=== PATIENT | female | born 1935 | race Caucasian/White ===

== ENCOUNTER 2016-07-14 10:05 | Observation (INO) ==
--- NOTE | 2016-07-14 10:21 | Emergency Department Note ---
Disposition Clinical Impression: Dehydration Altered mental status Qualifiers: Altered mental status type: somnolence Qualified Code(s): R40.0 - Somnolence Urinary tract infection Qualifiers: Urinary tract infection type: acute cystitis Hematuria presence: without hematuria Qualified Code(s): N30.00 - Acute cystitis without hematuria Disposition: Admitted As Inpatient Condition: Good Referrals: Chris Whitman MD [Primary Care Provider] - Forms: Work/School Release, ED Satisfaction Letter Time of Disposition: 13:12 Altered Mental Status HPI - General Chief Complaint: ED General Medical Stated Complaint: tremors/twitches Time Seen by Provider: 07/14/16 10:15 Source: family (Daughter and ), EMS Limitations: altered mental status Nursing Notes Reviewed: Yes Vital Signs Reviewed: Yes - History of Present Illness HPI Narrative: 80-year-old white female transferred from the retirement to be evaluated for change in mental status and twitching. This patient has a history of dementia, seizures, and a CVA in 2012. Her baseline is that she is nonambulatory and nonverbal. Her daughter states that she will usually acknowledge questions with a yes and no shake of her head. She cannot feed herself, but will eat when fed. On Saturday she was having trouble with cramps in her legs. She was started on a muscle relaxer. Since Saturday she has been intermittently more or less alert. She has had periods of time when she has eaten, more so in the mornings, but later in the day has not been eating or drinking well. She has been having twitching intermittently. She has been less alert, and not responding to questioning as much as usual. Her daughter states she seems slightly more alert this morning with her eyes open. complaint: altered mental status Onset (ago): day(s) (5) Timing confirmed by: family member, caregiver Associated symptoms: Reports: denies other symptoms Treatments prior to arrival: other (None) - Related Data Home Medications Medication Instructions Recorded Confirmed Acetaminophen [Tylenol] 650 mg PO HS 07/14/16 07/14/16 Acetaminophen [Tylenol] 650 mg PO QPM 07/14/16 07/14/16 Calcium Polycarbophil [Fibercon] 625 mg PO DAILY 07/14/16 07/14/16 Citalopram [CeleXA] 20 mg PO DAILY 07/14/16 07/14/16 Cranberry Fruit Concentrate 450 mg PO BID 07/14/16 07/14/16 [Cranberry] Docusate Sodium [Stool Softener] 100 mg PO BID 07/14/16 07/14/16 Ergocalciferol (VITAMIN D2) 400 unit PO DAILY 07/14/16 07/14/16 [Vitamin D] Gabapentin [Neurontin] 200 mg PO TID 07/14/16 07/14/16 LORazepam [Ativan] 0.5 mg PO BID 07/14/16 07/14/16 LevETIRAcetam [Keppra Oral Soln] 750 mg PO DAILY 07/14/16 07/14/16 Loratadine [Claritin] 10 mg PO DAILY 07/14/16 07/14/16 MOM Conc [Milk of Magnesia Conc] 10 ml PO DAILY 07/14/16 07/14/16 Melatonin [Melatin] 3 mg PO HS 07/14/16 07/14/16 Mirtazapine 7.5 mg PO DAILY 07/14/16 07/14/16 Multivit/Ca/Min/Fe/FA [Thera M 1 each PO DAILY 07/14/16 07/14/16 Plus] Oxybutynin Chloride [Ditropan Xl] 5 mg PO DAILY 07/14/16 07/14/16 Allergies Allergy/AdvReac Type Severity Reaction Status Date / Time No Known Allergies Allergy Verified 07/14/16 10:20 Limitations: ROS unobtainable due to patients medical condition (Dementia, CVA, nonverbal. ) Past Medical History - Past Medical History Medical history: Reports: CVA, dementia, hyperlipidemia, renal disease, seizures Psychiatric history: Reports: anxiety, depression - Social History Smoking Status: Former smoker Smokeless Tobacco Status: No Alcohol use: Reports: none Drug use: Reports: none Physical Exam - General Limitations: altered mental status General appearance: alert, in no apparent distress - Head Head exam: atraumatic, normocephalic - Eye Eye exam: Present: PERRL, EOMI. Absent: scleral icterus, conjunctival injection - ENT ENT exam: mucous membranes dry, TM's normal bilaterally - Neck Neck exam: Present: normal inspection, trachea midline, other (Increased muscle rigidity throughout her body, including her neck with limited range of motion.) . Absent: lymphadenopathy - Chest Chest inspection: Present: normal inspection, symmetric chest wall rise - Respiratory Respiratory exam: Present: normal lung sounds bilaterally. Absent: respiratory distress, wheezes - Cardiovascular Cardiovascular exam: Present: regular rate, normal rhythm, normal heart sounds - Abdominal Exam Abdominal exam: Present: soft, Non-Tender, normal bowel sounds. Absent: distention, guarding, organomegaly, mass - Extremities Exam Extremities exam: Present: normal capillary refill, other (Muscle atrophy). Absent: pedal edema - Neurological Exam Neurological exam: Present: alert, other (Nonverbal, orientation cannot be tested.). Absent: normal gait (Nonambulatory), motor sensory deficit (Appears to move all extremities spontaneously and symmetrically. We will reach often gripped the examiner, but will not perform motor exam.) - Psychiatric Psychiatric exam: Present: flat affect - Skin Skin exam: Present: warm, dry, other (Poor turgor). Absent: cyanosis, diaphoresis Course - Reevaluation(s) Reevaluation #1: Discussed with Dr. Whitman. He accepts for admission. Time: 13:12 Vital Signs Temperature 99.0 F 07/14/16 10:07 Pulse Rate 105 07/14/16 10:07 Respiratory Rate 18 07/14/16 10:07 Blood Pressure 160/85 07/14/16 10:07 O2 Sat by Pulse Oximetry 97 07/14/16 10:07 Temperature 99.0 F 07/14/16 10:37 Pulse Rate 75 07/14/16 12:30 Respiratory Rate 18 07/14/16 12:30 Blood Pressure 144/79 07/14/16 12:30 O2 Sat by Pulse Oximetry 98 07/14/16 12:30 Oxygen Delivery Oxygen Delivery Room Air Altered Mental Status - MDM Narrative Medical decision making narrative: Differential include not limited to CVA, intercerebral hemorrhage, myocardial infarction, pneumonia, urinary tract infection, dehydration, medication reaction. The patient does have urinary tract infection which could be the source of her altered sensorium/decreased by mouth intake. She clinically mildly dehydrated. I cannot rule out the possibility that she is over sedated from possibly the Ativan. She has a Keppra level pending as well. I gave her IV Rocephin in the emergency department. I started some IV fluids. I spoke with Dr. Whitman who will admit when observation bed - Lab Data Lab results reviewed: Yes I reviewed the patient's lab results. Result diagrams: 07/14/16 10:40 07/14/16 10:40 Lab Results 07/14/16 07/14/16 07/14/16 Range/Units 10:33 10:40 10:40 WBC 6.5 (4.3-11.1) K/mcL RBC 4.30 (3.82-4.97) M/mcL Hgb 12.9 (11.5-15.4) g/dL Hct 39.2 (35.3-44.9) % MCV 91.2 (83.0-100.0) fL MCH 30.0 (28.0-33.3) pg MCHC 32.9 (31.6-35.5) g/dL RDW 12.8 (11.5-14.5) % Plt Count 229 (140-400) K/mcL MPV 9.8 (9.4-12.4) fL Immature Gran % 0.3 (0-4) % Seg Neutrophils % 53.7 % Lymphocytes % 36.3 % Monocytes % 7.2 % Eosinophils % 1.7 % Basophils % 0.8 % Neutrophils # 3.5 (1.6-8.9) K/mcL Lymphocytes # 2.4 (0.6-4.6) K/mcL Monocytes # 0.5 (0.0-1.3) K/mcL Eosinophils # 0.1 (0.0-0.6) K/mcL Basophils # 0.1 (0.0-0.2) K/mcL Sodium 143 (136-145) mEq/L Potassium 4.2 (3.5-4.5) mEq/L Chloride 106 (98-109) mEq/L Carbon Dioxide 26 (19-29) mEq/L BUN 29 H (7-20) mg/dL Creatinine 1.02 (0.57-1.11) mg/dL Est GFR ( Amer) > 60 (> 60) Est GFR (Non-Af Amer) 52 L (> 60) BUN/Creatinine Ratio 28 H (6-26) Glucose 91 (70-99) mg/dL Calculated Osmolality 301 H (280-300) Calcium 9.4 (8.6-10.8) mg/dL Total Bilirubin 0.5 (0.2-1.2) mg/dL AST 15 (5-34) Units/L ALT 17 (0-55) Units/L Alkaline Phosphatase 95 (38-126) Units/L Troponin I (0-0.03) ng/mL Serum Total Protein 7.0 (6.0-8.3) g/dL Albumin 3.8 (3.5-5.0) g/dL Globulin 3.2 (2.4-3.5) g/dL Albumin/Globulin Ratio 1.2 (1.1-2.2) Urine Color Yellow (Yellow) Urine Clarity Slightly Cloudy A (Clear) Urine pH 6.5 (5.0-8.0) pH Units Ur Specific [place] 1.025 (1.010-1.025) Urine Protein Negative (Neg-Trace) mg/dL Urine Glucose (UA) Normal (Normal) mg/dL Urine Ketones Negative (Negative) mg/dL Urine Blood Moderate H (Negative) Urine Nitrite Positive A (Negative) Urine Bilirubin Negative (Negative) Urine Urobilinogen Normal (Normal) mg/dL Ur Leukocyte Esterase Trace H (Negative) Urine Microscopic RBC 3-5 H (0-3) per hpf Urine Microscopic WBC 15-30 H (0-3) per hpf Urine Bacteria Moderate H (None-Few) per hpf Urine Mucus Few (Few) Ur Culture Indicated? YES A (NO) 07/14/16 Range/Units 10:40 WBC (4.3-11.1) K/mcL RBC (3.82-4.97) M/mcL Hgb (11.5-15.4) g/dL Hct (35.3-44.9) % MCV (83.0-100.0) fL MCH (28.0-33.3) pg MCHC (31.6-35.5) g/dL RDW (11.5-14.5) % Plt Count (140-400) K/mcL MPV (9.4-12.4) fL Immature Gran % (0-4) % Seg Neutrophils % % Lymphocytes % % Monocytes % % Eosinophils % % Basophils % % Neutrophils # (1.6-8.9) K/mcL Lymphocytes # (0.6-4.6) K/mcL Monocytes # (0.0-1.3) K/mcL Eosinophils # (0.0-0.6) K/mcL Basophils # (0.0-0.2) K/mcL Sodium (136-145) mEq/L Potassium (3.5-4.5) mEq/L Chloride (98-109) mEq/L Carbon Dioxide (19-29) mEq/L BUN (7-20) mg/dL Creatinine (0.57-1.11) mg/dL Est GFR ( Amer) (> 60) Est GFR (Non-Af Amer) (> 60) BUN/Creatinine Ratio (6-26) Glucose (70-99) mg/dL Calculated Osmolality (280-300) Calcium (8.6-10.8) mg/dL Total Bilirubin (0.2-1.2) mg/dL AST (5-34) Units/L ALT (0-55) Units/L Alkaline Phosphatase (38-126) Units/L Troponin I 0.01 (0-0.03) ng/mL Serum Total Protein (6.0-8.3) g/dL Albumin (3.5-5.0) g/dL Globulin (2.4-3.5) g/dL Albumin/Globulin Ratio (1.1-2.2) Urine Color (Yellow) Urine Clarity (Clear) Urine pH (5.0-8.0) pH Units Ur Specific [place] (1.010-1.025) Urine Protein (Neg-Trace) mg/dL Urine Glucose (UA) (Normal) mg/dL Urine Ketones (Negative) mg/dL Urine Blood (Negative) Urine Nitrite (Negative) Urine Bilirubin (Negative) Urine Urobilinogen (Normal) mg/dL Ur Leukocyte Esterase (Negative) Urine Microscopic RBC (0-3) per hpf Urine Microscopic WBC (0-3) per hpf Urine Bacteria (None-Few) per hpf Urine Mucus (Few) Ur Culture Indicated? (NO) - Radiology Data Radiology results reviewed: Yes I reviewed the patient's radiology results. ITS Impressions Chest X-Ray 07/14/16 10:15 IMPRESSION: 1. Study limited by patient rotation. 2. No acute cardiopulmonary disease. D/ / 07/14/2016 12:22:01 Lefty Ceballos MD / Andra Gan Interpreting Provider: Lefty Ceballos MD Head CT 07/14/16 10:15 IMPRESSION: 1. Study significantly limited by patient motion artifact. 2. No gross acute intracranial abnormality. 3. Chronic left frontal infarct with an associated dystrophic calcification. 4. 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 RECOMMENDATIONS: Suggest a repeat head CT when the patient is more cooperative for more detailed characterization of intracranial contents. D/ / 07/14/2016 12:23:43 Lefty Ceballos MD / Andra Gan Interpreting Provider: Lefty Ceballos MD - EKG Data EKG attestation: Yes I reviewed and interpreted this EKG. EKG results narrative: Sinus rhythm, rate of 70, age indeterminate septal infarct, no acute ST-T wave changes. Rhythm strip shows sinus rhythm with a rate of 70, UT interval 160 ms , QRS 70 ms with no other ectopy as interpreted by me. There are no old EKGs available for comparison. TPA Checklist - LKW: 3-4.5 hrs Add. Contraindications Patient/family understanding: The patient/family members have been counseled and understood the risk, benefit , and alternatives of treatment.
[2016-07-14 10:36] LABS: Bilirubin,Urine Negative (Negative); Blood,Urine Moderate (Negative); Clarity,Urine Slightly Cloudy (Clear); Color,Urine Yellow (Yellow); Glucose,Urine (UA) Normal (Normal); Ketones,Urine Negative (Negative); Leukocyte Esterase,Urine Trace (Negative); Nitrite,Urine Positive (Negative); PH,Urine 6.5 pH Units (5.0-8.0); Protein,Urine Negative (Neg-Trace); Specific Gravity,Urine 1.025 (1.010-1.025); Urobilinogen,Urine Normal (Normal)
[2016-07-14 10:40] LABS: Bacteria,Urine Moderate per hpf (None-Few); Mucus,Urine Few (Few); WBC,Urine 15-30 per hpf (0-3)
[2016-07-14] MEDS ORDERED: CefTRIAXone 1,000 MG in D5% in Water (Mini-Bag+) 100 ML IVPB ONE (10:48)
[2016-07-14 10:50] LABS: Basophils # 0.1 K/mcL (0.0-0.2); Basophils % 0.8 %; Eosinophils # 0.1 K/mcL (0.0-0.6); Eosinophils % 1.7 %; Hematocrit 39.2 % (35.3-44.9); Hemoglobin 12.9 g/dL (11.5-15.4); Immature Granulocytes % 0.3 % (0-4); Lymphocytes # 2.4 K/mcL (0.6-4.6); Lymphocytes % 36.3 %; Mean Corpuscular HGB Conc 32.9 g/dL (31.6-35.5); Mean Corpuscular Volume 91.2 fL (83.0-100.0); Mean Platelet Volume 9.8 fL (9.4-12.4); Monocytes # 0.5 K/mcL (0.0-1.3); Monocytes % 7.2 %; Neutrophils # 3.5 K/mcL (1.6-8.9); Platelet Count 229 K/mcL (140-400); Red Cell Distribution Width 12.8 % (11.5-14.5); Segmented Neutrophils % 53.7 %
[2016-07-14 11:08] LABS: Alanine Aminotransferase 17 Units/L (0-55); Albumin 3.8 g/dL (3.5-5.0); Albumin/Globulin Ratio 1.2 (1.1-2.2); Alkaline Phosphatase 95 Units/L (38-126); Aspartate Amino Transferase 15 Units/L (5-34); BUN/Creatinine Ratio 28 (6-26); Bilirubin,Total 0.5 mg/dL (0.2-1.2); Blood Urea Nitrogen 29 mg/dL (7-20); Calcium 9.4 mg/dL (8.6-10.8); Carbon Dioxide 26 mEq/L (19-29); Chloride 106 mEq/L (98-109); Globulin 3.2 g/dL (2.4-3.5); Glucose 91 mg/dL (70-99); Osmolality,Calculated 301 (280-300); Potassium 4.2 mEq/L (3.5-4.5); Sodium 143 mEq/L (136-145); eGFR For African Americans > 60 (> 60); eGFR For Non-African Americans 52 (> 60)
[2016-07-14] MEDS ORDERED: 0.9 % Sodium Chloride 500 ML IVC ONE (11:18)
[2016-07-14] MEDS ORDERED: 0.9 % Sodium Chloride 1,000 ML IVC SCH ×3 (11:30→14:33)
[2016-07-14] MEDS ORDERED: Naloxone 0.4 MG/ML INJ IVP PRN (14:33)
--- NOTE | 2016-07-14 16:53 | Internal Med History&Physical ---
Date of Encounter: 07/14/16 Time of Encounter: 16:30 Assessment and Plan (1) Dehydration Current visit: Yes Status: Acute Suspect major contributor to mental status change. She will receive IV fluids. Follow-up labs will be ordered. (2) Seizures Current visit: Yes Status: Acute Continue Keppra (3) Urinary tract infection Current visit: Yes Status: Acute She has been started empirically on Rocephin. Further workup will be done as needed. Qualifiers: Urinary tract infection type: acute cystitis Hematuria presence: without hematuria Qualified Code(s): N30.00 - Acute cystitis without hematuria Internal Medicine - H&P: HPI Chief complaint: Mental Status change Admitted From: Long-term Nursing Facility Plans for Post Hospital Care: Transfer Package Reinspector Care History of present illness: Ms. Patterson is a 80 year old female who was sent to emergency room for evaluation after the [facility] staff reported her to have mental status changes. They reported she was mildly agitated and perhaps confused although she has significant dementia and is nonverbal. She was evaluated in the emergency room and felt to have UTI with dehydration. She was admitted to [facility] floor for ongoing care needs. Past Med Surg Social Fam HX - Past Medical History Medical history: CVA, dementia, hyperlipidemia, renal disease, seizures Psychiatric history: anxiety, depression - Social History Smoking Status: Former smoker Smokeless Tobacco Status: No Alcohol use: none Drug use: none Internal Medicine - H&P: Meds Acetaminophen [Tylenol] 650 mg PO HS 07/14/16 [History] Acetaminophen [Tylenol] 650 mg PO QPM 07/14/16 [History] Calcium Polycarbophil [Fibercon] 625 mg PO DAILY 07/14/16 [History] Citalopram [CeleXA] 20 mg PO DAILY 07/14/16 [History] Cranberry Fruit Concentrate [Cranberry] 450 mg PO BID 07/14/16 [History] Docusate Sodium [Stool Softener] 100 mg PO BID 07/14/16 [History] Ergocalciferol (VITAMIN D2) [Vitamin D] 400 unit PO DAILY 07/14/16 [History] Gabapentin [Neurontin] 200 mg PO TID 07/14/16 [History] LORazepam [Ativan] 0.5 mg PO BID 07/14/16 [History] LevETIRAcetam [Keppra Oral Soln] 750 mg PO DAILY 07/14/16 [History] Loratadine [Claritin] 10 mg PO DAILY 07/14/16 [History] MOM Conc [Milk of Magnesia Conc] 10 ml PO DAILY 07/14/16 [History] Melatonin [Melatin] 3 mg PO HS 07/14/16 [History] Mirtazapine 7.5 mg PO DAILY 07/14/16 [History] Multivit/Ca/Min/Fe/FA [Thera M Plus] 1 each PO DAILY 07/14/16 [History] Oxybutynin Chloride [Ditropan Xl] 5 mg PO DAILY 07/14/16 [History] Allergies No Known Allergies Allergy (Verified 07/14/16 10:20) All Systems PM: A 10-system review of systems was performed and is negative for pertinent findings except as documented above in the HPI. Review of systems: Review of systems is obtained from available records Gen.: Her weight is decreased from 77.11 kg at the May 2014 hospitalization to 68.039 kg on admission now Cardiovascular: She has history of hypertension and paroxysmal atrial fibrillation. 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 She has no known DVT pulmonary embolus or heart failure Respiratory: She is a lifelong nonsmoker and has no known chronic lung disease GI: She has no disorders of her liver gallbladder or exocrine pancreas : She has had hysterectomy. She has had OAB and CKD stage III. She has been diagnosed with numerous UTIs/bacturia in the past Endocrine: She has hyperlipidemia but no known diabetes or thyroid disease. 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 She has had grand mal seizures as well as possible absence seizures in the past. She was diagnosed with dementia approximately 2008 and has been on Aricept and Namenda in the past. She has been diagnosed with Parkinson's disease Hematology/oncology: There is no known blood disorders cancers or anemia Psychiatric: She is had no significant anxiety or depression documented in the past. She does have agitation with the dementia. [place] skeletal: She has history of chronic fatigue syndrome and vitamin D deficiency. She does not have known gout or significant DJD. She was started on Ativan a few days ago at the [facility] for possible restless leg syndrome - Constitutional Vitals: Temp Pulse Resp BP Pulse Ox 97.8 F 74 18 153/82 99 07/14/16 14:53 07/14/16 14:53 07/14/16 14:53 07/14/16 14:53 07/14/16 14:53 Exam: Gen.: She is a well-developed well-nourished female lying in bed who appears slightly agitated. She is nonverbal HEENT: Head is atraumatic and normocephalic. Eyes: EOMI. There is no scleral icterus. Mouth: Mucosa is moist. Neck: Supple and nontender. There is no thyromegaly or adenopathy noted. Heart: Regular without murmurs gallops or ectopics. Lungs: No wheezes or crackles are heard. Abdomen: Soft and nontender. No masses or guarding are noted. Extremities: There is no cyanosis edema or clubbing noted. Dorsalis pedis and posterior tibial pulses are trace palpable bilaterally. Neurologic: Mental status: Her eyes are open but she makes no attempt to speak. Cranial nerves: Facial movements are minimal but appear to be symmetric. Her gaze is conjugate. Motor: She has stiffness and rigidity on passive range of motion. She moves her arms well randomly without focal deficits noted. No further neurologic testing is attempted. Skin: Warm and dry Internal Med - H&P Results - Labs CBC & Chem 7: 07/14/16 10:40 07/14/16 10:40
[2016-07-14] MEDS: Gabapentin 100 MG CAPSULE PO SCH (18:33)
[2016-07-14] MEDS: *HR* LORazepam 2 MG/ML VIAL IVP PRN (19:17)
[2016-07-14] MEDS ORDERED: Acetaminophen 325 MG TABLET PO SCH (21:00)
[2016-07-15] MEDS: Gabapentin 100 MG CAPSULE PO SCH ×4 (01:54→22:55)
[2016-07-15] MEDS: Melatonin 3 MG TABLET PO SCH ×2 (01:54→22:55)
[2016-07-15] MEDS: *HR* LORazepam 2 MG/ML VIAL IVP PRN ×3 (04:23→23:01)
[2016-07-15] MEDS: *HR* Enoxaparin 30 MG/0.3 ML SYRINGE SQ SCH (04:24)
[2016-07-15 05:46] LABS: Basophils % 0.8 %; Eosinophils # 0.1 K/mcL (0.0-0.6); Eosinophils % 2.8 %; Hemoglobin 11.9 g/dL (11.5-15.4); Immature Granulocytes % 0.4 % (0-4); Lymphocytes # 2.2 K/mcL (0.6-4.6); Lymphocytes % 44.2 %; Mean Corpuscular HGB Conc 33.1 g/dL (31.6-35.5); Mean Corpuscular Hemoglobin 30.2 pg (28.0-33.3); Mean Corpuscular Volume 91.4 fL (83.0-100.0); Mean Platelet Volume 10.1 fL (9.4-12.4); Monocytes # 0.4 K/mcL (0.0-1.3); Monocytes % 8.7 %; Neutrophils # 2.2 K/mcL (1.6-8.9); Platelet Count 188 K/mcL (140-400); Red Blood Count 3.94 M/mcL (3.82-4.97); Red Cell Distribution Width 12.6 % (11.5-14.5); Segmented Neutrophils % 43.1 %
[2016-07-15 06:05] LABS: BUN/Creatinine Ratio 25 (6-26); Blood Urea Nitrogen 22 mg/dL (7-20); Calcium 8.8 mg/dL (8.6-10.8); Carbon Dioxide 24 mEq/L (19-29); Chloride 109 mEq/L (98-109); Glucose 85 mg/dL (70-99); Osmolality,Calculated 297 (280-300); Potassium 4.4 mEq/L (3.5-4.5); Sodium 142 mEq/L (136-145); eGFR For African Americans > 60 (> 60); eGFR For Non-African Americans > 60 (> 60)
[2016-07-15] MEDS ORDERED: Loratadine 10 MG TABLET PO SCH (09:00)
[2016-07-15] MEDS: MOM Conc 10 ML UD.LIQ PO SCH (10:08)
[2016-07-15] MEDS: Multivitamin Liquid 15 ML UDC PO SCH (10:08)
[2016-07-15] MEDS: Mirtazapine 15 MG TABLET PO SCH (10:09)
[2016-07-15] MEDS: Cholecalciferol (D-3) 1,000 UNIT TABLET PO SCH (10:10)
[2016-07-15] MEDS: CefTRIAXone 1,000 MG in D5% in Water (Mini-Bag+) 100 ML IVPB SCH (10:10)
--- NOTE | 2016-07-15 11:22 | Internal Med Progress Note ---
Date of Encounter: 07/15/16 Time of Encounter: 11:10 - Assessment and plan (1) Dehydration Current Visit: Yes Status: Acute Assessment and plan: July 15. Resolved. We will decrease IV fluid rate. Anticipate discharge back to [facility] tomorrow (2) Seizures Current Visit: Yes Status: Acute Assessment and plan: July 15. Continue Keppra (3) Urinary tract infection Current Visit: Yes Status: Acute Assessment and plan: July 15. Urine culture is pending. Continue Rocephin. Qualifiers: Urinary tract infection type: acute cystitis Hematuria presence: without hematuria Qualified Code(s): N30.00 - Acute cystitis without hematuria - Subjective Interval history: July 15. She has no new problems. - Constitutional Vitals: Temp Pulse Resp BP Pulse Ox 97.3 F L 60 18 169/67 94 L 07/15/16 07:33 07/15/16 07:33 07/15/16 07:33 07/15/16 07:33 07/15/16 07:33 Exam: She is resting comfortably in bed and appears more awake. She has less agitation and less leg movement. I reviewed her medications and lab results. Internal Medicine: Result - Labs CBC & Chem 7: 07/15/16 05:40 07/15/16 05:40 Labs: Short CBC 07/15/16 Range/Units 05:40 WBC 5.1 (4.3-11.1) K/mcL Hgb 11.9 (11.5-15.4) g/dL Hct 36.0 (35.3-44.9) % Plt Count 188 (140-400) K/mcL Neutrophils # 2.2 (1.6-8.9) K/mcL BMP 07/15/16 05:40 Sodium 142 Potassium 4.4 Chloride 109 Carbon Dioxide 24 BUN 22 H Creatinine 0.88 Glucose 85 Calcium 8.8 Consult Discharge Plan - Plan Referrals: Chris Whitman MD [Primary Care Provider] - 1 week
[2016-07-15] MEDS: Lactobacillus 1 EACH CAP.SPRINK PO SCH (22:55)
[2016-07-16] MEDS: *HR* Enoxaparin 30 MG/0.3 ML SYRINGE SQ SCH (06:03)
--- NOTE | 2016-07-16 07:11 | Electrocardiograph Report ---
[address] [place], [place] [address] Test Date: 2016-07-14 Pat Name: Becki Patterson Department: [id number] Room: [facility] Gender: F Build Master: : [id number] Requested By: Jose Guadalupe Moss Order Number: [id number] Reading MD: Jose Rivera MD Measurements Intervals Campbell Rate: 70 P: 18 WY: 165 QRS: -19 QRSD: 73 T: 66 QT: 416 QTc: 437 Interpretive Statements SINUS RHYTHM Electronically Signed On 07-16-2016 7:10:09 EST by Jose Rivera MD
[2016-07-16 07:42] VITALS: BP 122/71
--- NOTE | 2016-07-16 10:24 | Discharge Summary ---
Date of Encounter: 07/16/16 Time of Encounter: 10:05 - Discharge Diagnosis (1) Dehydration Priority: Primary Status: Resolved (2) Seizures Priority: Secondary Status: Chronic (3) Urinary tract infection Priority: Secondary Status: Acute Qualifiers: Urinary tract infection type: acute cystitis Hematuria presence: without hematuria Qualified Code(s): N30.00 - Acute cystitis without hematuria - Discharge Medications Prescriptions: Cephalexin [Keflex] 500 mg PO Q8H 3 Days Home Medications: Acetaminophen [Tylenol] 650 mg PO HS 07/14/16 [History] Acetaminophen [Tylenol] 650 mg PO QPM 07/14/16 [History] Calcium Polycarbophil [Fibercon] 625 mg PO DAILY 07/14/16 [History] Cranberry Fruit Concentrate [Cranberry] 450 mg PO BID 07/14/16 [History] Docusate Sodium [Stool Softener] 100 mg PO BID 07/14/16 [History] Ergocalciferol (VITAMIN D2) [Vitamin D] 400 unit PO DAILY 07/14/16 [History] Gabapentin [Neurontin] 200 mg PO TID 07/14/16 [History] LevETIRAcetam [Keppra Oral Soln] 750 mg PO DAILY 07/14/16 [History] MOM Conc [MILK OF MAGNESIA conc] 10 ml PO DAILY 07/14/16 [History] Melatonin [Melatin] 3 mg PO HS 07/14/16 [History] Mirtazapine 7.5 mg PO DAILY 07/14/16 [History] Multivit/Ca/Min/Fe/FA [Thera M Plus] 1 each PO DAILY 07/14/16 [History] Cephalexin [Keflex] 500 mg PO Q8H 3 Days 07/16/16 [Rx] Citalopram [CeleXA] 10 mg PO DAILY #0 07/16/16 [Rx] LORazepam [Ativan] 0.5 mg PO BID PRN 365 Days 07/16/16 [Rx] Lactobacillus [Culturelle] 1 each PO BID 3 Days 07/16/16 [Rx] Allergies/Adverse Reactions: Allergies No Known Allergies Allergy (Verified 07/14/16 10:20) Date of admission: 07/14/16 14:30 Primary care physician: Chris Whitman MD - Patient Status Disposition: Transfer SNF Condition: Good Overall status at discharge: patient is progressing back to baseline - Discharge Instructions Follow Up With: Chris Whitman MD [Primary Care Provider] - 1 week - Diet and Activity Activity: resume usual activities as tolerated Diet: advance to your usual diet Hospital course: Ms. Patterson is a 80 year old female who was sent to emergency room for evaluation after the [facility] staff reported her to have mental status changes. They reported she was mildly agitated and perhaps confused although she has significant dementia and is nonverbal. She was evaluated in the emergency room and felt to have UTI with dehydration. She was admitted to [facility] for ongoing care needs. Initial orders were written by the emergency room physician. I saw her on July 14 and performed the history and physical. She was given IV fluids. Her azotemia improved with BUN and creatinine being 22 and 0.88 respectively by the following day. Her mental status returned to baseline. She remained afebrile during her hospital stay. Urine culture returned showing Escherichia coli with broad sensitivity. She was started empirically on Rocephin on admission. She will continue Keflex for 3 additional days at discharge with lactobacillus. There were no new problems and on July 16 she was stable for discharge back to [facility] where she will follow with me. - Time Spent with Patient Total time spent providing and/or coordinating discharge services: - Constitutional Vitals: Temp Pulse Resp BP Pulse Ox 97.9 F 65 16 122/71 97 07/16/16 07:37 07/16/16 07:37 07/16/16 07:37 07/16/16 07:37 07/16/16 07:37
[2016-07-16] MEDS: CefTRIAXone 1,000 MG in D5% in Water (Mini-Bag+) 100 ML IVPB SCH (10:27)
--- NOTE | 2016-07-16 10:31 | Physician Discharge Referral ---
ExtendedCare Referral Info Transfer To: [facility] Provider in Charge: J Carlos Provider in Charge after Transfer: PCP (J Carlos) - Diagnosis (1) Dehydration Priority: Primary Status: Resolved (2) Seizures Priority: Secondary Status: Chronic (3) Urinary tract infection Priority: Secondary Status: Acute Prognosis: Fair Aware of Diagnosis: Family Aware of Prognosis: Family - Transfer Medications Prescriptions: Cephalexin [Keflex] 500 mg PO Q8H 3 Days Home Medications: Acetaminophen [Tylenol] 650 mg PO HS 07/14/16 [History] Acetaminophen [Tylenol] 650 mg PO QPM 07/14/16 [History] Calcium Polycarbophil [Fibercon] 625 mg PO DAILY 07/14/16 [History] Cranberry Fruit Concentrate [Cranberry] 450 mg PO BID 07/14/16 [History] Docusate Sodium [Stool Softener] 100 mg PO BID 07/14/16 [History] Ergocalciferol (VITAMIN D2) [Vitamin D] 400 unit PO DAILY 07/14/16 [History] Gabapentin [Neurontin] 200 mg PO TID 07/14/16 [History] LevETIRAcetam [Keppra Oral Soln] 750 mg PO DAILY 07/14/16 [History] MOM Conc [MILK OF MAGNESIA conc] 10 ml PO DAILY 07/14/16 [History] Melatonin [Melatin] 3 mg PO HS 07/14/16 [History] Mirtazapine 7.5 mg PO DAILY 07/14/16 [History] Multivit/Ca/Min/Fe/FA [Thera M Plus] 1 each PO DAILY 07/14/16 [History] Cephalexin [Keflex] 500 mg PO Q8H 3 Days 07/16/16 [Rx] Citalopram [CeleXA] 10 mg PO DAILY #0 07/16/16 [Rx] LORazepam [Ativan] 0.5 mg PO BID PRN 365 Days 07/16/16 [Rx] Lactobacillus [Culturelle] 1 each PO BID 3 Days 07/16/16 [Rx] Allergies/Adverse Reactions: Allergies No Known Allergies Allergy (Verified 07/14/16 10:20) - Respiratory Orders Smoking Cessation: Smoking cessation has been advised. For more information, call the [employer] Tobacco Quit Line at 0-604-VRSQ-NOW. - Rehabiliation Orders Rehab Potential: Fair CERTIFICATION: I certify that the transfer of the above named patient to an Extended Care Facility is necessary for the continuing treatment of the diagnosis listed. The above information is true and accurate reflection of patient's current condition. Confidential - Redisclosure prohibited without a patient's written consent.
[2016-07-16] MEDS: Lactobacillus 1 EACH CAP.SPRINK PO SCH (10:54)
[2016-07-16] MEDS: Multivitamin Liquid 15 ML UDC PO SCH (10:54)
[2016-07-16] MEDS: Gabapentin 100 MG CAPSULE PO SCH (10:55)
[2016-07-16] MEDS: Mirtazapine 15 MG TABLET PO SCH (10:55)
[2016-07-16] MEDS: Cholecalciferol (D-3) 1,000 UNIT TABLET PO SCH (10:55)
[2016-07-16] MEDS: MOM Conc 10 ML UD.LIQ PO SCH (10:55)
== END 2016-07-16 12:01 ==
LOC: INPPIK 10:05 → EMEROOPIK 10:05 → INPPIK 14:36
PROVIDERS: ADMIT Internal Medicine; ATTEND Internal Medicine